=== PATIENT | female | born 1995 | race Caucasian/White ===

== ENCOUNTER → 2020-04-29 14:19 | Outpatient (CLI) | payer OTHER, SELFPAY ==
--- NOTE | 2020-05-27 08:24 | P.HOLT.S_ITS ---
Nursing Director Report Referral & Results Date Patient Seen: 04/29/20 Requesting provider: Lucie Moreland Indication: Palpitations Duration of monitoring (days): 11 Diary information: There were 55 patient triggered events and 24 patient diary entries Patient triggered events were associated with (within 45 seconds) sinus rhythm, PVCs, and PACs. Patient diary events were associated with (within 45 seconds) sinus rhythm and PACs Data: Minimum heart rate identified was 39 beats per minute at 07:42 on 05/04/2020 Maximum heart rate was 157 beats per minute at 13:08 on 05/05/2020 Less than 1% of identified beats or either ventricular supraventricular ectopic in origin Impression: Normal cardiac technologist showing rare PACs and PVCs. Difficult to determine from patient triggered events, given the large number, and that they were variably associated with both PACs and PVCs as well as sinus rhythm, whether not any single dysrhythmia as a source of patient's symptom of palpitations. Certainly no serious dysrhythmias identified on this study
== END ==
PROVIDERS: PCP Physician Assistant; Referring Provider Physician Assistant; Visit Provider Physician Assistant
DX: R00.2 Palpitations (principal)
CPT/HCPCS: 0296T; 0298T